=== PATIENT | female | born 1985 | race Caucasian/White ===

== ENCOUNTER 2021-06-16 11:25 | Outpatient (CLI) | payer OTHER ==
[2021-06-16] MEDS ORDERED: PRENATAL TABLE1 EAC2 PO (12:04)
[2021-06-16] MEDS ORDERED: TYLENOL325 MG PO (12:04)
== END 2021-06-17 10:35 | disposition home or self-care (01) ==
LOC: OBS/DEL 11:25
PROVIDERS: ATTEND Obstetrics & Gynecology
DX: O99.513 Diseases of the respiratory system complicating pregnancy, third trimester (principal); Z3A.32 32 weeks gestation of pregnancy; Z20.822 Contact with and (suspected) exposure to COVID-19

== ENCOUNTER 2021-08-18 20:35 | Inpatient (IN) | payer OTHER ==
[~2021-08-18] VITALS: Ht 165.1 cm; Wt 3.6 kg
[~2021-08-18 20:35] MED LIST: PRENATAL TABLE1 EAC2 PO; TYLENOL325 MG PO
[2021-08-20] MEDS ORDERED: PERCOCET 5-3251 EACH PO (10:02)
== END 2021-08-20 12:40 | disposition home or self-care (01) | DRG 785 ==
LOC: OB/GYN 20:35 → LDR 20:35 → OB/GYN 08-19 00:28
PROVIDERS: ADMIT Obstetrics & Gynecology; ATTEND Obstetrics & Gynecology
PROC: 0UB70ZZ Excision of Bilateral Fallopian Tubes, Open Approach (ICD-10-PCS; 2021-08-18)
PROC: 4A1HXCZ Monitoring of Products of Conception, Cardiac Rate, External Approach (ICD-10-PCS; 2021-08-18)
PROC: 10D00Z1 Extraction of Products of Conception, Low, Open Approach (ICD-10-PCS; principal; 2021-08-18 21:00)
DX: O36.63X0 Maternal care for excessive fetal growth, third trimester, not applicable or unspecified (principal); O99.820 Streptococcus B carrier state complicating pregnancy; O34.211 Maternal care for low transverse scar from previous cesarean delivery; Z3A.40 40 weeks gestation of pregnancy; Z37.0 Single live birth; Z30.2 Encounter for sterilization; Z20.822 Contact with and (suspected) exposure to COVID-19